=== PATIENT | female | born 1955 | race Caucasian/White ===

== ENCOUNTER → 2017-09-03 | Day surgery (SDC) | payer BC ==
[~2017-09-03] MED LIST: ASPIRIN81 MG PO; CLONIDINE HCL0.1 MG PO; DAILY VALUE1 EACH PO; FENTANYL CITRATE/PF 100MCG/2 ML INJ ONE; LIPITOR20 MG PO; LOSARTAN-HCTZ1 EAC1 PO; MIDAZOLAM HCL 2 MG/2 ML VIAL ONE; OR PHACO EYE KIT ONE; PREOP PHACO EYE KIT ONE; SYNTHROID112 MCG PO; VITAMIN C250 M1 PO; VITAMIN D32000 UNIT PO
== END | disposition home or self-care (01) ==
LOC: OR 11:17
PROVIDERS: ATTEND Ophthalmology
DX: H25.12 Age-related nuclear cataract, left eye (principal); I10 Essential (primary) hypertension; I25.2 Old myocardial infarction; R27.0 Ataxia, unspecified; Z86.19 Personal history of other infectious and parasitic diseases
CPT/HCPCS: 66984; J2250; V2632